=== PATIENT | male | born 1970 | race Caucasian/White ===

== ENCOUNTER 2022-02-04 17:53 | Observation (INO) ==
[2022-02-04] MEDS ORDERED: SODIUM CHLORIDE 0.9% 1000ML 1,000 ML IV STA (19:54)
[2022-02-04 20:04] LABS: Basophils # (auto) 0.08 K/uL (0-0.2); Basophils % (auto) 0.5 %; Eosinophils # (auto) 0.26 K/uL (0-0.50); Eosinophils % (auto) 1.7 %; Hematocrit (blood only) 48.4 % (40.1-51.0); Hemoglobin 16.4 g/dl (14.0-18.0); Immature Granulocytes # (auto) 0.11 K/uL (0.00-0.02); Immature Granulocytes % (auto) 0.7 %; Lymphocytes # (auto) 2.36 K/uL (1.2-3.4); Lymphocytes % (auto) 15.7 %; Mean Corpuscular Hemoglobin 29.5 pg (25.0-34.0); Mean Corpuscular Hgb Conc 33.9 g/dL (32.0-36.0); Mean Corpuscular Volume 87.2 fL (80.0-100.0); Mean Platelet Volume 11.3 fL (9.4-12.4); Monocytes % (auto) 8.6 %; Neutrophils # (auto) 10.95 K/uL (1.4-6.5); Neutrophils % (auto) 72.8 %; Platelet Count 229 K/uL (130-400); RDW Coefficient of Variation 12.1 % (11.5-14.5); Red Blood Count 5.55 M/uL (4.63-6.08); White Blood Count 15.06 K/ul (4.8-10.8)
--- NOTE | 2022-02-04 20:14 | Emergency Department Note ---
History of Present Illness General Chief complaint: Constipation Stated complaint: REFERRED BY DOC, NO BOWEL SINCE SAT, CONSTIPATION Time Seen by Provider: 02/04/22 19:42 Source: patient Mode of arrival: ambulatory Limitations: no limitations History of Present Illness Maximum Pain Intensity: 8 This patient is a 52-year-old male who has been not feeling well since this past Monday has had no bowel movement. He said that on Monday and he had vomiting also fevers. Is been feeling bloated he has abdominal pain mostly on the right. He went to work today but had to leave because of the pain he saw his doctor referred him here for work-up. He denies any numbness weakness in his legs no trauma he is some chronic back issues but no acute changes. no change in bladder function. The pain has been intermittent he has had decreased gas with minimal production he is tried suppositories without much relief. Denies pain or swelling in the testicles or groin Home Medications Medication Instructions Recorded Confirmed Type colchicine 0.6 mg tablet 0.6 mg PO DAILY PRN gout flares 02/04/22 02/04/22 History diphenhydramine HCl 25 mg tablet 25 mg PO HS 02/04/22 02/04/22 History (Sleep Aid (diphenhydramine)) melatonin 10 mg tablet 10 mg PO HS 02/04/22 02/04/22 History Allergies Allergy/AdvReac Type Severity Reaction Status Date / Time No Known Allergies Allergy Unverified 02/04/22 22:21 Past Med/Surg History Social History Smoking Status: Never smoker Feels Safe at Home: Yes Immunizations: Past medical historydenies any significant medical history. Specifically denies any abdominal surgeries or colon disease Social historydoes not smoke or drink Review of Systems A total of 10 systems reviewed and were otherwise negative Physical Exam Vital Signs Vital Signs - 24 hr 02/04/22 17:59 02/04/22 19:56 02/04/22 19:56 Temperature 37.9 C H Temperature Source Oral Pulse Rate 97 H Pulse Rate [Finger] 96 H Pulse Rhythm [Finger] Regular Pulse Strength [Finger] Normal Respiratory Rate 16 20 Respiratory Effort / Characteristics Non-Labored Non-Labored Respiratory Depth Normal Normal Respiratory Pattern Regular Blood Pressure 153/93 H Blood Pressure [Right Arm] 136/117 H Blood Pressure Mean 113 Blood Pressure Mean [Right Arm] 123 Pulse Oximetry 96 96 96 Oxygen Delivery Method Room Air Room Air Room Air Sepsis Recent Fever Within 48 Hours No Sepsis New/Unexplained Change in Mental Status No Sepsis Action Taken by Nursing No Action Required 02/04/22 22:00 Temperature Temperature Source Pulse Rate Pulse Rate [Finger] 88 Pulse Rhythm [Finger] Regular Pulse Strength [Finger] Normal Respiratory Rate 18 Respiratory Effort / Characteristics Non-Labored Respiratory Depth Normal Respiratory Pattern Regular Blood Pressure Blood Pressure [Right Arm] 147/99 H Blood Pressure Mean Blood Pressure Mean [Right Arm] 115 Pulse Oximetry 97 Oxygen Delivery Method Room Air Sepsis Recent Fever Within 48 Hours Sepsis New/Unexplained Change in Mental Status Sepsis Action Taken by Nursing General: Well developed well nourished mildly anxious otherwise not ill- appearing in no acute distress, breathing comfortably on room air. Normal speech HEENT: Normal cephalic atraumatic. Pupils are equal round and reactive to light. Extraocular movements are intact. Oropharynx is pink with moist mucous membranes. No swelling of the mouth lips or tongue. Neck: Supple with a midline trachea. No meningeal signs or stiffness, no JVD or bruits. No Stridor. Chest: Clear to auscultation bilaterally. No wheezes or rhonchi. No increased work of breathing. Heart: Regular rate and rhythm without murmurs or gallops. Abdomen: Soft mildly tender to palpation in the right mid abdomen. Nondistended without rebound guarding or rigidity. Extremities: No cyanosis clubbing or edema. No calf tenderness or assymetry Spine/Back. Non tender to palpation. No CVA tenderness Skin: Good turgor without rashes. Neurologic exam: Cranial nerves two through 12 are intact. Motor and sensation are intact and symmetrical throughout. Course Administered Medications Sodium Chloride (Nss 1000ml) 1,000 mls @ 125 mls/hr IV .Q8H STA Stop: 02/05/22 03:53 Last Admin: 02/04/22 19:56 Dose: 125 mls/hr Documented By: DUTCH Discontinued Medications Piperacillin Sod/Tazobactam Sod (Zosyn) 4.5 gm in 120 mls @ 240 mls/hr IV NOW ONE Stop: 02/04/22 22:19 Last Infusion: 02/04/22 22:37 Dose: 0 mls/hr Documented By: Admin: 02/04/22 22:07 Dose: 240 mls/hr Documented By: DUTCH Ioversol (Optiray 350 100ml) 86 ml IV ONCE ONE Stop: 02/04/22 20:43 Last Admin: 02/04/22 20:43 Dose: 86 ml Documented By: KAISER Medical Decision Making Differential Diagnosis Constipation, bowel obstruction, appendicitis, colitis, infectious disease, neurologic, metabolic, dehydration Medical Records Attestation: I reviewed the patient's medical records. Home Medications Current Medication List: was personally reviewed by me Laboratory Data Attestation: I reviewed the patient's lab results. Result diagrams: 02/04/22 19:50 02/04/22 19:50 Lab Results 02/04/22 02/04/22 02/04/22 Range/Units 19:50 19:50 19:50 WBC 15.06 H (4.8-10.8) K/ul RBC 5.55 (4.63-6.08) M/uL Hgb 16.4 (14.0-18.0) g/dl Hct 48.4 (40.1-51.0) % MCV 87.2 (80.0-100.0) fL MCH 29.5 (25.0-34.0) pg MCHC 33.9 (32.0-36.0) g/dL RDW Std Deviation 39.0 (36.4-46.3) fL RDW Coeff of Cat 12.1 (11.5-14.5) % Plt Count 229 (130-400) K/uL MPV 11.3 (9.4-12.4) fL Immature Gran % (Auto) 0.7 % Neut % (Auto) 72.8 % Lymph % (Auto) 15.7 % [place] % (Auto) 8.6 % Eos % (Auto) 1.7 % Baso % (Auto) 0.5 % Neut # (Auto) 10.95 H (1.4-6.5) K/uL Lymph # (Auto) 2.36 (1.2-3.4) K/uL [place] # (Auto) 1.30 H (0.24-0.82) K/uL Eos # (Auto) 0.26 (0-0.50) K/uL Baso # (Auto) 0.08 (0-0.2) K/uL Immature Gran # (Auto) 0.11 H (0.00-0.02) K/uL Sodium 136 (136-145) mmol/L Potassium 3.8 (3.5-5.1) mmol/L Chloride 100 (98-107) mmol/L Carbon Dioxide 27 (21-32) mmol/L Anion Gap 9 (3-11) BUN 11 (6-23) mg/dl Creatinine 1.10 (0.6-1.4) mg/dl Est Cr Clr Drug Dosing 101.3 ml/min Est GFR ( Amer) 88.4 ml/min Est GFR (Non-Af Amer) 76.2 ml/min BUN/Creatinine Ratio 10.0 (10-20) Glucose 117 H (70-99(Fasting)) mg/dl Calcium 9.2 (8.5-10.1) mg/dl Total Bilirubin 1.1 H (0.2-1.0) mg/dl AST 61 H (13-39) U/L ALT 106 H (7-52) U/L Alkaline Phosphatase 117 H (34-104) U/L Total Protein 8.6 H (6.0-8.3) gm/dl Albumin 4.8 (3.4-5.0) gm/dl Globulin 3.8 (2.5-4.0) gm/dl Albumin/Globulin Ratio 1.3 (0.9-2) Lipase 22 (11-82) U/L Urine Color Yellow Urine Appearance Clear (Clear) Urine pH 6.5 (4.5-7.5) Ur Specific [place] 1.016 (1.000-1.030) Urine Protein Trace H (Negative) Urine Glucose (UA) Negative (Negative) Urine Ketones Trace H (Negative) Urine Blood Trace H (Negative) Urine Nitrite Negative (Negative) Urine Bilirubin Negative (Negative) Urine Urobilinogen Negative (Negative) Ur Leukocyte Esterase Negative (Negative) Urine WBC (Auto) 1-5 (0-5) /hpf Urine RBC (Auto) 0-4 (0-4) /hpf U Hyaline Cast (Auto) 1-5 (0-5) /lpf U Epithel Cells (Auto) 0-5 (0-5) /lpf Urine Bacteria (Auto) Negative (Negative) SARS-CoV-2, RNA, NAAT (NEGATIVE) 02/04/22 Range/Units 22:10 WBC (4.8-10.8) K/ul RBC (4.63-6.08) M/uL Hgb (14.0-18.0) g/dl Hct (40.1-51.0) % MCV (80.0-100.0) fL MCH (25.0-34.0) pg MCHC (32.0-36.0) g/dL RDW Std Deviation (36.4-46.3) fL RDW Coeff of Cat (11.5-14.5) % Plt Count (130-400) K/uL MPV (9.4-12.4) fL Immature Gran % (Auto) % Neut % (Auto) % Lymph % (Auto) % [place] % (Auto) % Eos % (Auto) % Baso % (Auto) % Neut # (Auto) (1.4-6.5) K/uL Lymph # (Auto) (1.2-3.4) K/uL [place] # (Auto) (0.24-0.82) K/uL Eos # (Auto) (0-0.50) K/uL Baso # (Auto) (0-0.2) K/uL Immature Gran # (Auto) (0.00-0.02) K/uL Sodium (136-145) mmol/L Potassium (3.5-5.1) mmol/L Chloride (98-107) mmol/L Carbon Dioxide (21-32) mmol/L Anion Gap (3-11) BUN (6-23) mg/dl Creatinine (0.6-1.4) mg/dl Est Cr Clr Drug Dosing ml/min Est GFR ( Amer) ml/min Est GFR (Non-Af Amer) ml/min BUN/Creatinine Ratio (10-20) Glucose (70-99(Fasting)) mg/dl Calcium (8.5-10.1) mg/dl Total Bilirubin (0.2-1.0) mg/dl AST (13-39) U/L ALT (7-52) U/L Alkaline Phosphatase (34-104) U/L Total Protein (6.0-8.3) gm/dl Albumin (3.4-5.0) gm/dl Globulin (2.5-4.0) gm/dl Albumin/Globulin Ratio (0.9-2) Lipase (11-82) U/L Urine Color Urine Appearance (Clear) Urine pH (4.5-7.5) Ur Specific [place] (1.000-1.030) Urine Protein (Negative) Urine Glucose (UA) (Negative) Urine Ketones (Negative) Urine Blood (Negative) Urine Nitrite (Negative) Urine Bilirubin (Negative) Urine Urobilinogen (Negative) Ur Leukocyte Esterase (Negative) Urine WBC (Auto) (0-5) /hpf Urine RBC (Auto) (0-4) /hpf U Hyaline Cast (Auto) (0-5) /lpf U Epithel Cells (Auto) (0-5) /lpf Urine Bacteria (Auto) (Negative) SARS-CoV-2, RNA, NAAT NEGATIVE (NEGATIVE) Imaging Data Attestation: I personally reviewed and interpreted this imaging study as follows: My Impression: CT of the abdomen and pelvisI do not appreciate any free air or bowel obstruction. There is a gallstone and thickening of the gallbladder wall Radiologist's Impression: Abdomen/Pelvis CT 02/04/22 19:54 CT SCAN OF THE ABDOMEN AND PELVIS WITH IV CONTRAST CLINICAL HISTORY: Constipation. Right-sided abdominal pain. COMPARISON STUDY: No priors. TECHNIQUE: Following the IV administration of 86 cc of Optiray 350, CT scan of the abdomen and pelvis is performed from the lung bases to the proximal femora. Images are reviewed in the axial, sagittal, and coronal planes. IV contrast was administered without complication. A dose lowering technique was utilized adhering to the principles of ALARA. CT DOSE: 1036.60 mGy.cm FINDINGS: Lung bases: The heart is normal in size and without pericardial effusion. The lung bases are clear. Liver: The contrast-enhanced liver is enlarged, measuring 21.7 cm in length. The liver demonstrates diffusely diminished attenuation indicating steatosis. Fatty sparing is seen adjacent to the gallbladder fossa. There is no intrahepatic biliary ductal dilatation. The hepatic veins and portal veins are patent. Gallbladder: There are calcified gallstones. The gallbladder is distended. The gallbladder wall is thickened and edematous with pericholecystic infiltration and trace fluid. The appearance is consistent with acute cholecystitis. Spleen: Normal in size and attenuation. Pancreas: Unremarkable. Adrenal glands: Unremarkable. Kidneys: The contrast enhanced kidneys are normal in size and without hydronephrosis. The kidneys enhance symmetrically. A 1.8 cm cyst is noted on the left. Abdominal vasculature: The abdominal aorta is normal in course and caliber. Bowel: There is moderate colonic fecal retention. No bowel obstruction is seen. The appendix is well-visualized and normal. Peritoneum: No intraperitoneal free air is seen. Trace free fluid is noted in the pelvis. There is a fat-containing umbilical hernia. Lymphadenopathy: None. Pelvic viscera: The bladder, prostate, and seminal vesicles are normal as visualized. Skeletal structures: There is mild lumbosacral spondylosis. Large posterior disc osteophyte complexes are noted at L3-L4 and L4-L5. No lytic or blastic lesions are seen. IMPRESSION: 1. Cholelithiasis with acute cholecystitis. Surgical assessment is advised. 2. There is no intra or extrahepatic biliary ductal dilatation. 3. Trace free fluid in the pelvis is likely reactive. 4. Hepatomegaly and hepatic steatosis. 5. Additional findings as above. ACT 112: Negative or not required by law. Electronically signed by: Emmanuel Gerber M.D. 02/04/2022 8:54 PM MDM Narrative This patient comes in as scribed above he was placed in room C1. He has been having abdominal pain and decreased bowel movement he usually has bowel movements once a day. He has not had 1 for several days and has had intermittent fevers and vomiting. He also had some abdominal pain on the right side. IV access was established blood work was obtained his white count is 15,000. I did get a CAT scan to evaluate him for the possibility of bowel obstruction colitis appendicitis and other potential etiologies. He was reassessed frequently. He was hydrated 1 L IV normal saline bolus. CAT scan does show acute cholecystitis. His liver functions are also mildly elevated his white count is elevated. I did give him Zosyn 4.5 g IV. He was COVID tested negative he was hydrated with normal saline he was kept n.p.o. I did consult Dr. Denis who is going to admit him to the hospital for likely cholecystectomy in the morning. Impression & Plan Acute cholecystitis, Abdominal pain, Constipation, Lab test negative for COVID- 19 virus Discharge Plan Visit Data Chief Complaint: Constipation Stated Complaint: REFERRED BY DOC, NO BOWEL SINCE SAT, CONSTIPATION ED Provider: Matthieu Arroyo Discharge Problem: Acute cholecystitis, Abdominal pain, Constipation, Lab test negative for COVID- 19 virus Discharge Instructions Interventions: ED Discharge Assessment Last Done: 02/04/22 23:04 Forms Stand Alone Forms: [employer] Prescriptions Prescriptions: No Action diphenhydramine HCl [Sleep Aid (diphenhydramine)] 25 mg Tablet 25 mg PO HS colchicine 0.6 mg tablet 0.6 mg PO DAILY PRN (Reason: gout flares) melatonin 10 mg Tablet 10 mg PO HS Referrals Referrals: Grayson Bustos CRNP [Nurse Practitioner] - : Abdominal pain Qualifiers: Abdominal location: right upper quadrant Qualified Code(s): R10.11 - Right upper quadrant pain Constipation Qualifiers: Constipation type: unspecified constipation type Qualified Code(s): K59.00 - Constipation, unspecified
[2022-02-04 20:21] LABS: Appearance Urine Clear (Clear); Bacteria Urine Automated Negative (Negative); Bilirubin Urine Negative (Negative); Blood Urine Trace (Negative); Color Urine Yellow; Epithelial Cell Urine Auto 0-5 /lpf (0-5); Glucose Urine UA Negative (Negative); Ketones Urine Trace (Negative); Leukocyte Esterase Urine Negative (Negative); Nitrite Urine Negative (Negative); Protein Urine Trace (Negative); RBC Urine Automated 0-4 /hpf (0-4); Specific Gravity Urine 1.016 (1.000-1.030); Urobilinogen Urine Negative (Negative); pH Urine 6.5 (4.5-7.5)
[2022-02-04 20:28] LABS: Albumin Globulin Ratio 1.3 (0.9-2); Albumin Level 4.8 gm/dl (3.4-5.0); Bilirubin,Total 1.1 mg/dl (0.2-1.0); Calcium 9.2 mg/dl (8.5-10.1); Creatinine Clr Calc Pharmacy 101.3 ml/min; Est GFR (African American) 88.4 ml/min; Est GFR (Non-African American) 76.2 ml/min; Globulin 3.8 gm/dl (2.5-4.0); Potassium 3.8 mmol/L (3.5-5.1); Total Protein 8.6 gm/dl (6.0-8.3)
[2022-02-04] MEDS ORDERED: OPTIRAY 350 100ml IV ONE (20:42)
--- NOTE | 2022-02-04 20:57 | CT Scan Report ---
CT SCAN OF THE ABDOMEN AND PELVIS WITH IV CONTRAST CLINICAL HISTORY: Constipation. Right-sided abdominal pain. COMPARISON STUDY: No priors. TECHNIQUE: Following the IV administration of 86 cc of Optiray 350, CT scan of the abdomen and pelvi s is performed from the lung bases to the proximal femora. Images are reviewed in the axial, sagittal , and coronal planes. IV contrast was administered without complication. A dose lowering technique wa s utilized adhering to the principles of ALARA. CT DOSE: 1036.60 mGy.cm FINDINGS: Lung bases: The heart is normal in size and without pericardial effusion. The lung bases are clear. Liver: The contrast-enhanced liver is enlarged, measuring 21.7 cm in length. The liver demonstrates d iffusely diminished attenuation indicating steatosis. Fatty sparing is seen adjacent to the gallbladd er fossa. There is no intrahepatic biliary ductal dilatation. The hepatic veins and portal veins are patent. Gallbladder: There are calcified gallstones. The gallbladder is distended. The gallbladder wall is th ickened and edematous with pericholecystic infiltration and trace fluid. The appearance is consistent with acute cholecystitis. Spleen: Normal in size and attenuation. Pancreas: Unremarkable. Adrenal glands: Unremarkable. Kidneys: The contrast enhanced kidneys are normal in size and without hydronephrosis. The kidneys enh ance symmetrically. A 1.8 cm cyst is noted on the left. Abdominal vasculature: The abdominal aorta is normal in course and caliber. Bowel: There is moderate colonic fecal retention. No bowel obstruction is seen. The appendix is well -visualized and normal. Peritoneum: No intraperitoneal free air is seen. Trace free fluid is noted in the pelvis. There is a fat-containing umbilical hernia. Lymphadenopathy: None. Pelvic viscera: The bladder, prostate, and seminal vesicles are normal as visualized. Skeletal structures: There is mild lumbosacral spondylosis. Large posterior disc osteophyte complexes are noted at L3-L4 and L4-L5. No lytic or blastic lesions are seen. IMPRESSION: 1. Cholelithiasis with acute cholecystitis. Surgical assessment is advised. 2. There is no intra or extrahepatic biliary ductal dilatation. 3. Trace free fluid in the pelvis is likely reactive. 4. Hepatomegaly and hepatic steatosis. 5. Additional findings as above. ACT 112: Negative or not required by law. Electronically signed by: Emmanuel Gerber M.D. 02/04/2022 8:54 PM
[2022-02-04] MEDS ORDERED: PIPERACILLIN/TAZOBACTAM 4.5 GM/120 ML BAG IV ONE (21:50)
[2022-02-04] MEDS ORDERED: MoRPHine SULFATE 4 MG/ML 1 ML CARP\\VIAL IV PRN (23:58)
[2022-02-04] MEDS ORDERED: oxyCODONE HCL IR 5 MG TAB (IMMEDIATE RELEASE) PO PRN (23:58)
[2022-02-04] MEDS ORDERED: MoRPHine SULFATE 2 MG/ML CARP IV PRN (23:58)
[2022-02-04] MEDS ORDERED: ONDANSETRON INJ 2 MG/ML 2 ML VIAL IV PRN (23:58)
[2022-02-05] MEDS: SODIUM CHLORIDE 0.9% 1000ML 1,000 ML IV SCH ×3 (00:30→20:29)
[2022-02-05] MEDS: PIPERACILLIN/TAZOBACTAM 4.5 GM in DEXTROSE 5% 100 ML IV SCH ×3 (05:17→20:28)
[2022-02-05 08:17] LABS: Basophils # (auto) 0.06 K/uL (0-0.2); Basophils % (auto) 0.6 %; Eosinophils # (auto) 0.34 K/uL (0-0.50); Eosinophils % (auto) 3.3 %; Hematocrit (blood only) 41.7 % (40.1-51.0); Hemoglobin 14.1 g/dl (14.0-18.0); Immature Granulocytes # (auto) 0.07 K/uL (0.00-0.02); Immature Granulocytes % (auto) 0.7 %; Lymphocytes # (auto) 1.47 K/uL (1.2-3.4); Lymphocytes % (auto) 14.4 %; Mean Corpuscular Hemoglobin 29.9 pg (25.0-34.0); Mean Corpuscular Hgb Conc 33.8 g/dL (32.0-36.0); Mean Corpuscular Volume 88.3 fL (80.0-100.0); Mean Platelet Volume 11.5 fL (9.4-12.4); Monocytes # (auto) 0.98 K/uL (0.24-0.82); Monocytes % (auto) 9.6 %; Neutrophils # (auto) 7.31 K/uL (1.4-6.5); Neutrophils % (auto) 71.4 %; Platelet Count 189 K/uL (130-400); RDW Coefficient of Variation 12.1 % (11.5-14.5); RDW Standard Deviation 39.5 fL (36.4-46.3); Red Blood Count 4.72 M/uL (4.63-6.08); White Blood Count 10.23 K/ul (4.8-10.8)
[2022-02-05 08:41] LABS: Albumin Globulin Ratio 1.3 (0.9-2); Albumin Level 3.8 gm/dl (3.4-5.0); BUN Creatinine Ratio 11.4 (10-20); Calcium 8.3 mg/dl (8.5-10.1); Creatinine Clr Calc Pharmacy 106.2 ml/min; Est GFR (African American) 93.5 ml/min; Est GFR (Non-African American) 80.7 ml/min; Total Protein 6.8 gm/dl (6.0-8.3)
--- NOTE | 2022-02-05 10:00 | History & Physical Report ---
Date of Service February 05, 2022 Assessment & Plan (1) Acute cholecystitis: Plan: CT images and results personally viewed by myself, clinical exam and imaging consistent with cholecystitis His labs were reviewed he has no significant elevation in his LFTs or biliary ductal dilation suggesting distal obstruction Limit the patient to surgery, keep n.p.o. give IV fluids Start the patient on Unasyn We will plan on laparoscopic cholecystectomy, possible open, possible intraoperative cholangiogram Consent was obtained, risk discussed including bleeding, infection, bile leak, ductal injury Admission and Anticipated Discharge Date Admission Date: February 04, 2022 History of Present Illness Chief Complaint: Abdominal pain Primary Care Provider: NO PCP This is a 52-year-old male who presented to the emergency department with a few days of generalized abdominal pain and constipation. He states yesterday he was seen by his PCP and was having more right-sided pain and they sent to the ER for evaluation. He described the pain as sharp, without radiation and worse with palpation. He did have associated nausea and vomiting with this. He denies any scleral icterus, jaundice, acholic stools, tea colored urine. Denies any previous abdominal surgeries. He is feeling a little bit better today with less pain. He did have a bowel movement yesterday evening. Work-up in the ER included a CT of the abdomen pelvis that showed acute cholecystitis. Allergies Allergy/AdvReac Type Severity Reaction Status Date / Time No Known Allergies Allergy Unverified 02/04/22 22:21 Home Medications Medication Instructions Recorded Confirmed Type colchicine 0.6 mg tablet 0.6 mg PO DAILY PRN gout flares 02/04/22 02/04/22 History diphenhydramine HCl 25 mg tablet 25 mg PO HS 02/04/22 02/04/22 History (Sleep Aid (diphenhydramine)) melatonin 10 mg tablet 10 mg PO HS 02/04/22 02/04/22 History Past Med/Surg History Social History Smoking Status: Never smoker Hx Alcohol Use: Yes Alcohol type: beer, wine and hard liquor Hx Substance Use: Yes Last Used Substance: Days (ago) Preferred Language: Persian Communication Ability: Effective Banking Supervisor Required: No Beliefs That Will Affect Care: None Current Living Situation: Family Feels Safe at Home: Yes Safety Concerns: Feels Safe At This Time Review of Systems Constitutional: + fever; no chills Eyes: no worsening vision Ear, Nose, Mouth, Throat: no ear pain and no hearing loss Respiratory: no cough and no dyspnea Cardiovascular: no chest pain and no dyspnea on exertion Gastrointestinal: + abdominal pain, + bloating, + nausea, + vomiting and + constipation; no blood in stools Genitourinary: no dysuria Musculoskeletal: no back pain and no neck pain Integumentary: no rash, no non-healing lesions and no skin ulcer Neurologic: no headache(s) Psychiatric: no behavioral changes and no depression Hematologic / Lymphatic: no easy bleeding and no easy bruising Physical Exam Constitutional: WD/WN, vitals as above Eyes: PERRL, conjunctivae normal, anicteric sclerae ENMT: external ear and nose normal, oropharynx normal Neck: trachea midline, no thyromegaly Respiratory: normal respiratory effort, lungs clear to auscultation Cardiovascular: RRR, no murmur, no edema Gastrointestinal (Abdomen): Inspection/Auscultation: abdomen normal to inspection; abdomen not distended Percussion/Palpation: + abdomen tender (Right upper quadrant), + guarding and abdomen soft; abdomen not rigid and no hernia Positive Duarte's Musculoskeletal: no cyanosis or clubbing, extremities motor strength 5/5 Skin: no rashes, warm and dry Neurologic: PERRL, EOMI, accommodation nl, no face palsy, no dysarthria Psychiatric: A+Ox3, euthymic affect Results & Data Results & Data ([facility]) Vital Signs (Past 12 Hours) Vital Signs Temp Pulse Resp BP Pulse Ox O2 Del Method 02/05/22 08:14 36.7 C 78 16 122/71 97 Room Air 02/04/22 23:40 37 C 80 16 127/88 94 Room Air 02/04/22 22:00 88 18 147/99 H 97 Room Air Diagnostic Findings CT SCAN OF THE ABDOMEN AND PELVIS WITH IV CONTRAST CLINICAL HISTORY: Constipation. Right-sided abdominal pain. COMPARISON STUDY: No priors. TECHNIQUE: Following the IV administration of 86 cc of Optiray 350, CT scan of the abdomen and pelvis is performed from the lung bases to the proximal femora. Images are reviewed in the axial, sagittal, and coronal planes. IV contrast was administered without complication. A dose lowering technique was utilized adhering to the principles of ALARA. CT DOSE: 1036.60 mGy.cm FINDINGS: Lung bases: The heart is normal in size and without pericardial effusion. The lung bases are clear. Liver: The contrast-enhanced liver is enlarged, measuring 21.7 cm in length. The liver demonstrates diffusely diminished attenuation indicating steatosis. Fatty sparing is seen adjacent to the gallbladder fossa. There is no intrahepatic biliary ductal dilatation. The hepatic veins and portal veins are patent. Gallbladder: There are calcified gallstones. The gallbladder is distended. The gallbladder wall is thickened and edematous with pericholecystic infiltration and trace fluid. The appearance is consistent with acute cholecystitis. Spleen: Normal in size and attenuation. Pancreas: Unremarkable. Adrenal glands: Unremarkable. Kidneys: The contrast enhanced kidneys are normal in size and without hydronephrosis. The kidneys enhance symmetrically. A 1.8 cm cyst is noted on the left. Abdominal vasculature: The abdominal aorta is normal in course and caliber. Bowel: There is moderate colonic fecal retention. No bowel obstruction is seen. The appendix is well-visualized and normal. Peritoneum: No intraperitoneal free air is seen. Trace free fluid is noted in the pelvis. There is a fat-containing umbilical hernia. Lymphadenopathy: None. Pelvic viscera: The bladder, prostate, and seminal vesicles are normal as visualized. Skeletal structures: There is mild lumbosacral spondylosis. Large posterior disc osteophyte complexes are noted at L3-L4 and L4-L5. No lytic or blastic lesions are seen. IMPRESSION: 1. Cholelithiasis with acute cholecystitis. Surgical assessment is advised. 2. There is no intra or extrahepatic biliary ductal dilatation. 3. Trace free fluid in the pelvis is likely reactive. 4. Hepatomegaly and hepatic steatosis. 5. Additional findings as above. Code Status & VTE Plan VTE Prophylaxis Plan VTE Prophylaxis will be ordered: Yes PG Care Time/CCT Total # of Minutes Spent Total Time Spent with Patient: Total time spent is greater than 50% in coordination of care (as documented) at patient's floor/unit and/or counseling patient: Coding Level of Care Code 99082 Initial Inpt Care Lvl 3 Diagnoses Acute cholecystitis K81.0
[2022-02-05] MEDS ORDERED: DEXAMETHASONE SOD INJ 4 MG/ML VIAL ONE (11:33)
[2022-02-05] MEDS ORDERED: LIDOCAINE 2% 2 ML VIAL/AMP(20MG/ML) INFIL ONE (11:33)
[2022-02-05] MEDS ORDERED: ROCURONIUM BROMIDE 10 MG/ML 5 ML VIAL IV ONE (11:33)
[2022-02-05] MEDS ORDERED: PROPOFOL IV EMULSION 10 MG/ML 20 ML VIAL IV ONE (11:33)
[2022-02-05] MEDS ORDERED: GLYCOPYRROLATE 0.2 MG/ML VIAL ONE (11:33)
[2022-02-05] MEDS ORDERED: ONDANSETRON INJ 2 MG/ML 2 ML VIAL ONE (11:33)
[2022-02-05] MEDS ORDERED: NEOSTIGMINE METHYLSULFATE 1 MG/ML 10ML VIAL ONE (11:33)
[2022-02-05] MEDS ORDERED: MIDAZOLAM HCL 1 MG/ML 2ML VIAL ONE (11:33)
[2022-02-05] MEDS ORDERED: fentaNYL citrate 100 MCG/2 ML VIAL ONE ×2 (11:33→12:34)
[2022-02-05] MEDS ORDERED: ATROPINE SULFATE 0.1 MG/ML 10ML SYR IV PRN (12:00)
[2022-02-05] MEDS ORDERED: ONDANSETRON INJ 2 MG/ML 2 ML VIAL IV PRN (12:00)
[2022-02-05] MEDS ORDERED: ePHEDrine sulfate 50 MG/ML AMP IV PRN (12:00)
[2022-02-05] MEDS ORDERED: HYDROmorphone INJ 2 MG/ML SYR/VIAL IV PRN (12:00)
[2022-02-05] MEDS ORDERED: fentaNYL citrate 100 MCG/2 ML VIAL IV PRN (12:00)
--- NOTE | 2022-02-05 12:00 | Anesthesiology Consultation ---
Date of Service February 05, 2022 Assessment & Plan ASA ASA2 Proposed Anesthesia Anesthesia Type: General Risk / Benefits Reviewed With: PT / POA / Parent / Guardian, Accepts Plan and Informed Consent Obtained History Surgery Operation Date: 02/05/22 10:30 Proposed Procedures p Laparoscopic Cholecystectomy - Kyrie Denis DO Height/Weight Height: 6 ft Weight: 114.4 kg Allergies Allergy/AdvReac Type Severity Reaction Status Date / Time No Known Allergies Allergy Unverified 02/04/22 22:21 Medications Home Medications Medication Instructions Recorded Confirmed Last Taken colchicine 0.6 mg tablet 0.6 mg PO DAILY PRN gout flares 02/04/22 02/04/22 Unknown diphenhydramine HCl 25 mg tablet 25 mg PO HS 02/04/22 02/04/22 02/03/22 (Sleep Aid (diphenhydramine)) melatonin 10 mg tablet 10 mg PO HS 02/04/22 02/04/22 02/03/22 oxycodone 5 mg tablet 5 - 10 mg PO Q4H pain, initial 02/05/22 Unknown therapy #15 tabs Active Medications Generic Name Dose Route Start Last Admin Trade Name Freq PRN Reason Stop Dose Admin Sodium Chloride 1,000 mls @ 125 mls/hr 02/04/22 23:58 02/05/22 11:39 Nss 1000ml IV 03/06/22 23:57 0 mls/hr .Q8H ESTEBAN Infusion Piperacillin Sod/Tazobactam 120 mls @ 30 mls/hr 02/05/22 04:00 02/05/22 09:17 Sod 4.5 gm/ Dextrose IV 02/15/22 03:59 Infused Q8H ESTEBAN Infusion Protocol NPO Date Last Intake of Fluids: 02/04/22 Time Last Intake of Fluids: 23:59 Date Last Intake of Solids: 02/02/22 Exercise / Class Metabolic Activity II 4-5 Yardwork/Stairs/Walk up hill Past Anesthesia History No Hx of Anesthesia Complications and No Family Hx of Anesthesia Complications History of PONV No Hx of PONV and No Hx of Motion Sickness Social History Smoking Status: Never smoker Hx Alcohol Use: Yes Alcohol type: beer, wine and hard liquor alcohol intake frequency: a few times a month Hx Substance Use: Yes substance use type: marijuana Last Used Substance: Days (ago) Review of Systems denies fever/cough/ colds/ chest pain/ SOB/ LANA denies LANA Physical Exam Vital Signs Last Vital Signs Temp 36.7 C 02/05/22 08:14 Pulse 78 02/05/22 08:14 Resp 16 02/05/22 08:14 BP 122/71 02/05/22 08:14 Pulse Ox 97 02/05/22 08:14 O2 Del Method 02/05/22 08:14 ENMT Mouth: no TMJ abnormality and no dentition abnormality Thyromental Distance: > or= 3.5 Finger Breadths Mallampati Class: II Neck neck extension not limited Respiratory normal respiratory effort; no respiratory distress Auscultation: lungs clear to auscultation bilaterally Cardiovascular Rate/Rhythm: regular rate and regular rhythm Neurologic moves all extremities Psychiatric Orientation: alert and oriented x 3 Testing Laboratory Results 02/05/22 07:15 02/05/22 07:15 Urine Color Yellow 02/04/22 19:50 Urine Appearance Clear (Clear) 02/04/22 19:50 Urine pH 6.5 (4.5-7.5) 02/04/22 19:50 Ur Specific [place] 1.016 (1.000-1.030) 02/04/22 19:50 Urine Protein Trace (Negative) H 02/04/22 19:50 Urine Glucose (UA) Negative (Negative) 02/04/22 19:50 Urine Ketones Trace (Negative) H 02/04/22 19:50 Urine Nitrite Negative (Negative) 02/04/22 19:50 Ur Leukocyte Esterase Negative (Negative) 02/04/22 19:50 Urine WBC (Auto) 1-5 /hpf (0-5) 02/04/22 19:50 Urine RBC (Auto) 0-4 /hpf (0-4) 02/04/22 19:50 U Hyaline Cast (Auto) 1-5 /lpf (0-5) 02/04/22 19:50 U Epithel Cells (Auto) 0-5 /lpf (0-5) 02/04/22 19:50 Urine Bacteria (Auto) Negative (Negative) 02/04/22 19:50
[2022-02-05] MEDS ORDERED: BUPIVACAINE/EPINEPHRINE 0.25% 1:200,000 30 ML VIAL ONE (12:04)
[2022-02-05] MEDS ORDERED: KETAMINE 50 MG/5 ML SYRINGE ONE (12:24)
[2022-02-05] MEDS ORDERED: HYDROmorphone INJ 2 MG/ML SYR/VIAL ONE (12:34)
[2022-02-05] MEDS ORDERED: LABETALOL HCL IV 5 MG/ML 20ML IV ONE (12:42)
--- NOTE | 2022-02-05 13:42 | Post Operative Brief Note ---
PG Immediate Post Op with CF Date of Surgery February 05, 2022 Pre & Post Diagnosis Operation Date: 02/05/22 10:30 Pre-Op Diagnosis: Acute Cholecystitis. Post-Op Diagnosis: Acute gangrenous cholecystitis. I identified the patient and participated in the time-out.: Yes Procedure Operation Date: 02/05/22 10:30 Actual Procedures p Laparoscopic Cholecystectomy(Not Applicable) - Kyrie Denis DO Surgeon Kyrie Denis DO Behavioral Intervention Specialist Erwin Tomas PA-C Estimated Blood Loss 25 Findings See Below Acutely inflamed dilated gangrenous gallbladder with thickened wall Specimens Specimen Description: A. Gallbladder and contents. Anesthesia Type General Complications none Disposition Disposition: Recovery Room
--- NOTE | 2022-02-05 13:45 | Operative Report ---
PG Post Operative Report Pre & Post Diagnosis Operation Date: 02/05/22 10:30 Pre-Op Diagnosis: Acute Cholecystitis. Post-Op Diagnosis: Acute gangrenous cholecystitis. I identified the patient and participated in the time-out.: Yes Procedure Operation Date: 02/05/22 10:30 Actual Procedures p Laparoscopic Cholecystectomy(Not Applicable) - Kyrie Denis DO Surgeon Kyrie Denis DO Piecer Up Erwin Tomas PA-C Estimated Blood Loss 25 Findings See Below Acutely inflamed dilated gangrenous gallbladder with thickened wall Fluids see anesthesia record Specimens Gallbladder to pathology Drains None Anesthesia Type General Complications none Disposition Disposition: Recovery Room Indications 52-year-old male with acute cholecystitis Description of Procedure The patient was brought to the operating room and placed in the supine position with both arms extended. At this time he underwent general endotracheal anesthesia without any problems. He was given appropriate pre-operative antibiotics. His abdomen prepped and draped in the usual sterile fashion. A timeout was called, the procedure was verified as Laparoscopic cholecystectomy, possible open, possible intra-operative cholangiogram. Surgical, nursing and anesthesia teams agreed and the procedure was begun. After injection of 0.25% Marcaine with epinephrine, a supraumbilical vertical incision was made and carried down to the fascia using S-retractors. The abdominal wall was then elevated with towel clamps and abdomen entered using the Veress needle confirming position using the saline drop test. Pneumoperitoneum was established. 5mm trocar was placed. Laparoscope was introduced. No injury from entry into the abdomen was visualized after inspection of the abdomen. Three further ports were placed under direct visualization. One 11mm in the subxiphoid region and two 5mm in the RUQ. At this time the abdomen was inspected and the gallbladder identified. The gallbladder was acutely inflamed with a severely thickened wall and gangrenous. The gallbladder fundus was g rasped and retracted cephalad. The gallbladder was decompressed using a needle so that it would be easier to manipulate. The gallbladder infundibulum was then grasped and retracted laterally. The cystic duct and cystic artery were then identified and skeletonized. The critical view of safety was obtained. They were both then clipped twice proximally and once distally and then divided using scissors. The gallbladder was then taken off of the liver bed using electrocautery and placed in an endocatch bag and removed from the subxiphoid port. Any bleeding was controlled using electrocautery. Hemostasis was complete. The abdomen was irrigated until clear. The liver bed was then inspected and no bile leak or bleeding was evident. The subxiphoid port was then closed using 0-Vicryl using the suture passer. The trocars were then removed under direct visualization and no bleeding was present. Abdomen was desufflated. The skin was then closed using 4-0 Monocryl in a subcuticular fas hion. Surgical glue was applied. Needle and sponge counts were correct x 2. At this time the patient was awoken from anesthesia and extubated having remained stable throughout the entire case. The patient was then transported to PACU in stable condition. The physician field research assistant was present scrubbed for the entire case. He was essential in positioning, prepping and draping the patient, driving the laparoscope, retraction exposure, closure of the incisions and placement of the dressings. I attest to the content of the Intraoperative Record and any orders documented therein. Any exceptions are noted below.
--- NOTE | 2022-02-05 14:37 | Anesthesiology Progress Note ---
Date of Service February 05, 2022 Anesthesia Post Procedure Vital Signs Vital Signs: Temp Pulse Pulse Pulse Resp BP BP 02/05/22 14:15 77 16 142/72 H 02/05/22 14:05 76 15 144/77 H 02/05/22 14:25 36.5 C 79 16 129/77 02/05/22 13:58 36 C L 78 15 145/75 H 02/05/22 08:14 36.7 C 78 16 02/04/22 23:40 37 C 80 16 02/04/22 22:00 88 18 02/04/22 19:56 02/04/22 19:56 96 H 20 02/04/22 17:59 37.9 C H 97 H 16 153/93 H BP Pulse Ox O2 Del Method O2 Flow Rate 02/05/22 14:15 94 Oxymask 4 02/05/22 14:05 97 Oxymask 6 02/05/22 14:25 94 Oxymask 2 02/05/22 13:58 96 Oxymask 6 02/05/22 08:14 122/71 97 Room Air 02/04/22 23:40 127/88 94 Room Air 02/04/22 22:00 147/99 H 97 Room Air 02/04/22 19:56 96 Room Air 02/04/22 19:56 136/117 H 96 Room Air 02/04/22 17:59 96 Room Air Transfer of Care Handoff Completed per policy Notes Mental Status: alert / awake / arousable and participated in evaluation Patient Amnestic to Procedure: Yes Nausea / Vomiting: adequately controlled Pain: adequately controlled Airway Patency, RR, SpO2: stable & adequate BP & HR: stable & adequate Hydration State: stable & adequate Anesthetic Complications: no major complications apparent and Pt Satisfied with anesthetic care
[2022-02-05] MEDS ORDERED: COLCHICINE 0.6 MG TAB PO PRN (14:54)
[2022-02-05] MEDS: ACETAMINOPHEN 325 MG TAB PO PRN (17:18)
[2022-02-05] MEDS ORDERED: COUGH DROP (SUGAR FREE) LOZ 24 LOZ/1 BOX BUCCAL ONE (17:22)
[2022-02-05] MEDS ORDERED: MELATONIN 3 MG TAB PO SCH (21:00)
[2022-02-05] MEDS ORDERED: diphenhydrAMINE Capsule 25 MG CAP PO SCH (21:00)
[2022-02-06] MEDS: PIPERACILLIN/TAZOBACTAM 4.5 GM in DEXTROSE 5% 100 ML IV SCH ×2 (03:50→12:43)
[2022-02-06] MEDS: SODIUM CHLORIDE 0.9% 1000ML 1,000 ML IV SCH ×2 (03:53→11:23)
--- NOTE | 2022-02-06 10:20 | Surgery Progress Note ---
Date of Service February 06, 2022 Assessment & Plan (1) Acute cholecystitis: Plan: POD#1 laparoscopic cholecystectomy for gangrenous gallbladder Patient is doing well. Pain controlled. Tolerating a diet Incisions look good, will ask RN to change epigastric dressing as there is some old blood noted Will dispo on a course of augmentin Dispo instructions reviewed, f/u in clinic with Dr. Denis in 2 weeks Admission and Anticipated Discharge Date Admission Date: February 04, 2022 Subjective Patient is doing well. Pain manageable. Tolerating a diet without nausea/vomiting. Passing flatus. Physical Exam Physical Exam: awake/alert, no distress Gastrointestinal (Abdomen): Inspection/Auscultation: + abdominal surgical incision (c/d/i with some old drainage to epigastric dressing); abdomen not distended Percussion/Palpation: + abdomen tender (expected noah incisional discomfort to palpation ) and abdomen soft Results & Data ([facility]) Vital Signs (Past 12 Hours) Vital Signs Temp Pulse Resp BP Pulse Ox O2 Del Method 02/06/22 07:53 37.1 C 90 16 136/78 95 Room Air 02/06/22 04:07 36.5 C 82 16 128/83 94 Room Air PG Care Time/CCT Total # of Minutes Spent Total Time Spent with Patient: Total time spent is greater than 50% in coordination of care (as documented) at patient's floor/unit and/or counseling patient: Coding Level of Care Code None Diagnoses Acute cholecystitis K81.0
[2022-02-06] MEDS: ACETAMINOPHEN 325 MG TAB PO PRN (11:23)
--- NOTE | 2022-02-06 20:56 | Discharge Summary ---
Date of Service February 06, 2022 Admission HPI Per Admitting Provider This is a 52-year-old male who presented to the emergency department with a few days of generalized abdominal pain and constipation. He states yesterday he was seen by his PCP and was having more right-sided pain and they sent to the ER for evaluation. He described the pain as sharp, without radiation and worse with palpation. He did have associated nausea and vomiting with this. He denies any scleral icterus, jaundice, acholic stools, tea colored urine. Denies any previous abdominal surgeries. He is feeling a little bit better today with less pain. He did have a bowel movement yesterday evening. Work-up in the ER included a CT of the abdomen pelvis that showed acute cholecystitis. Principal Diagnosis acute cholecystitis Discharge Exam awake/alert, no distress Gastrointestinal (Abdomen) Inspection/Auscultation: + abdominal surgical incision (c/d/i with some old drainage to epigastric dressing); abdomen not distended Percussion/Palpation: + abdomen tender (expected noah incisional discomfort to palpation ) and abdomen soft Discharge Data Allergies Allergy/AdvReac Type Severity Reaction Status Date / Time No Known Allergies Allergy Unverified 02/04/22 22:21 Consultations 02/04/22 21:55 ED Decision to Admit Stat Procedures Performed Operation Date: 02/05/22 10:30 Actual Procedures p Laparoscopic Cholecystectomy(Not Applicable) - Kyrie Denis, Ordered Studies 02/04/22 19:54 CT abd pelvis IV con only Stat Hospital Course (1) Acute cholecystitis: This is a 52y M who presented to the [facility] in the late evening of 02/04/22 with complaints of abdominal pain. Workup revealed findings consistent with acute cholecystitis. WBC 15. The patient was kept NPO with IVF and started on pre-op abx. He was consented for surgical intervention. On the morning of 02/05 the patient went to the OR with Dr. Denis for a laparoscopic cholecystectomy, intraop found to have a gangrenous gallbladder. The patient tolerated the procedure well, see op note for full details. The patient recovered in the PACU and was transferred to the med/surg unit in stable condition. His diet was advanced as tolerated, pain managed on prn medications, and incisions intact without signs of infection. On POD#1 the patient was doing well, diet tolerated, pain controlled, voiding without issues. He was deemed stable for discharge to home with plans to follow up in clinic with Dr. Denis in 2 weeks. he was given a course of antibiotic to complete at home. Total Time Total Time Spent Total Time Spent (In Minutes): 10 Discharge Plan Discharge Items Patient Disposition: Home - Self-Care Reason For Visit: ACUTE CHOLECYSTITIS Discharge Diagnosis: Laparoscopic cholecystectomy Activity: As commented below Lifting: No more than 10 pounds Bathing Comment: ok to shower Exercise/Sports: Wait until after follow-up appointment Driving/Machine Use: Resume 3 days after discharge Non-emergency contact: Surgeon Call non-emergency contact if: you have any medication questions, your pain is not controlled, you have a fever, your temperature is above 101.5 and your wound has increased redness Follow-up/Referrals: Kyrie Denis, [Physician] - (Please call to schedule an appt in 2 weeks) PCP,NO [Primary Care Provider] - Diet: Regular Addtl Attending Provider Instructions: You may purchase Ibuprofen over the counter if needed for additional pain control Can return to work in 3-5 days You may purchase a stool softener over the counter if needed for constipation, such as Colace Pending Studies at Discharge: No Stand-Alone Forms: My [employer], Pain - Opioid Pain Management, Smoking Cessation Medications and DC Order Prescriptions: New amoxicillin-pot clavulanate 875-125 mg tablet 1 tab PO BID Qty: 10 0RF oxycodone-acetaminophen [Percocet] 5-325 mg tablet 1 - 2 tab PO .q4-6h PRN (Reason: pain, for initial therapy, max 6 tabs per day) Qty: 15 0RF Continued diphenhydramine HCl [Sleep Aid (diphenhydramine)] 25 mg Tablet 25 mg PO HS colchicine 0.6 mg tablet 0.6 mg PO DAILY PRN (Reason: gout flares) melatonin 10 mg Tablet 10 mg PO HS Discharge Orders: Discharge Order (Routine); Ordered 02/06/22 Ordered By: Brenda Arteaga Admission Data Admit Date/Time: 02/04/22 22:08 Attending Provider: Kyrie Denis Admit Provider: Kyrie Denis Primary Care Provider: PCP,NO Other Providers: Kyrie Denis Other Interventions: Discharge Summary Assessment (RN) Last Done: 02/06/22 12:45 Coding Level of Care Code D/C DAY MANAGEMENT <30 MINS Diagnoses Acute cholecystitis K81.0
== END 2022-02-06 13:15 | disposition home or self-care (01) | DRG 419 ==
LOC: ED 17:53 → 3W 22:08 → INTOOBSV 22:08 → 3W 23:04